=== PATIENT | female | born 1985 | race Caucasian/White ===

== ENCOUNTER 2019-02-09 23:15 | Inpatient (IN) | payer OTHER ==
[2019-02-09] MEDS ORDERED: ELECTROLYTE-148 SOLN 500 ML IV ONE (23:45)
[2019-02-09] MEDS ORDERED: CITRIC ACID/SODIUM CITRATE 30 ML UNIT-DOSE CUP PO ONE (23:45)
[2019-02-10] MEDS ORDERED: ELECTROLYTE-148 SOLN 1,000 ML IV SCH (00:15)
[2019-02-10 01:17] VITALS: BMI 29.2
[2019-02-10] MEDS ORDERED: OXYTOCIN 20 UNITS in 0.9% NS 20 UNIT/1,000 ML INFUS.BAG IV ONE ×2 (04:49→07:14)
[2019-02-10] MEDS ORDERED: morphine SULFATE/PF 0.5 MG/ML (2cc Syringe - QUVA) ONE (04:52)
[2019-02-10] MEDS ORDERED: ePHEDrine SULFATE 50 MG/1 ML AMPULE ONE (04:52)
--- NOTE | 2019-02-10 05:00 | HP ---
Past Medical History - Primary Care Physician PCP:: Jose Milian - Admission Chief Complaint: 39 weeks, previous c/s , SROM, labor , request of c/s History of Present Illness: 33 yo f g 2 p1001 39 weeks, c/o rom, clear , has contraction, fhr cat 1, regular contraction , one previous c/s, request of repeat c/s, risks of repeat c /s discussed. no fever, GBS negative History Source: Patient - Past Medical History ...: 2 ...Para: 1 ...Term: 1 ...LMP: 05/11/18 ... Weeks Gestation by Dates: 39.1 ...EDC by Dates: 02/15/19 ...EDC by Sono: 02/11/19 Heme/Onc: Yes: Anemia - Past Surgical History Hx Myomectomy: No Hx Transabdominal Cerclage: No - Smoking History Smoking history: Never smoked - Alcohol/Substance Use Hx Alcohol Use: No - Social History Usual Living Arrangement: Yes: With Spouse History of Recent Travel: No Home Medications - Allergies Allergies/Adverse Reactions: Allergies Allergy/AdvReac Type Severity Reaction Status Date / Time No Known Allergies Allergy Verified 02/10/19 01:08 - Home Medications Home Medications: Ambulatory Orders Iron 100 Plus Tablet 1 tab PO DAILY 02/10/19 One Tablet 1 tab PO DAILY 02/10/19 Review of Systems - Review of Systems Constitutional: reports: No Symptoms Eyes: reports: No Symptoms HENT: reports: No Symptoms Neck: reports: No Symptoms Cardiovascular: reports: No Symptoms Respiratory: reports: No Symptoms Gastrointestinal: reports: No Symptoms Genitourinary: reports: No Symptoms Breasts: reports: No Symptoms Reported Musculoskeletal: reports: No Symptoms Integumentary: reports: No Symptoms Neurological: reports: No Symptoms Endocrine: reports: No Symptoms Hematology/Lymphatic: reports: No Symptoms Psychiatric: reports: No Symptoms Physical Exam - Maternity Vital Signs: Vital Signs Temperature 98.8 F 02/10/19 02:00 Pulse Rate 89 02/10/19 01:10 Respiratory Rate 20 02/10/19 01:10 Blood Pressure 114/75 02/10/19 01:10 O2 Sat by Pulse Oximetry (%) Constitutional: Yes: Well Nourished, No Distress, Calm Eyes: Yes: WNL, Conjunctiva Clear, EOM Intact HENT: Yes: WNL, Atraumatic, Normocephalic Neck: Yes: WNL, Supple, Trachea Midline Cardiovascular: Yes: WNL, Regular Rate and Rhythm Breast(s): Yes: WNL - Abdominal Exam/OB Fundal Height: 38 Number of Fetuses: Single Presentation: Vertex Contractions: Yes Regularity: Regular Intensity: Mod/Strong Monitor Mode: External Heart Rate Location: RLQ Accelerations: Non-Uniform Decelerations: None - Vaginal Exam/OB Vaginal Bleediing: No Speculum Exam: No Dilatation (cm): 3 cm Effacement (%): 70 Amniotic Membrane Status: Ruptured Amniotic Fluid: Yes: Clear Presentation: Vertex/Position Station: -2 - Physical Exam Musculoskeletal: Yes: WNL Edema: LLE: Trace, RLE: Trace Deep Tendon Reflex Grade: Normal +2 ...Motor Strength: WNL Psychiatric: Yes: WNL Hemorrhage Risk Assessment - Risk Factors Medium Risk Factors: Yes: Prior , uterine surgery,or multiple laparotomies Risk Score: 1 Risk Level: Medium Risk Problem List - Problems (1) with 39 completed weeks gestation Code(s): Z3A.39 - 39 WEEKS GESTATION OF (2) membrane rupture Code(s): SNB0190 - (3) Previous section complicating Code(s): O34.219 - MATERNAL CARE FOR UNSP TYPE SCAR FROM PREVIOUS DEL (4) Labor established Code(s): LXT0865 - (5) Advanced maternal age (AMA) in Code(s): GPV5487 - Assessment/Plan repeat c/s, risks and ulternatives discussed , patient was booked previously for repeat c/s by Dr Mera
[2019-02-10] MEDS ORDERED: ceFAZolin SODIUM 1 GM VIAL ONE (05:10)
[2019-02-10] MEDS ORDERED: diphenhydrAMINE HCL 25 MG CAPSULE (FP) PO PRN (05:58)
[2019-02-10] MEDS ORDERED: METHYLERGONOVINE MALEATE 0.2 MG/1 ML AMP IM PRN (05:58)
[2019-02-10] MEDS ORDERED: BENZOCAINE 20% 57 GM BOTTLE TP PRN (05:58)
[2019-02-10] MEDS ORDERED: BENZOCAINE 28 GM HEMORRHOIDAL OINTMENT PR PRN (05:58)
[2019-02-10] MEDS ORDERED: WITCH HAZEL 50% (TUCKS) 40 PAD/JAR PAD TP PRN (05:58)
[2019-02-10] MEDS ORDERED: oxyCODONE HCL 5 MG TABLET PO PRN ×2 (05:58)
[2019-02-10] MEDS ORDERED: OXYTOCIN 20 UNITS in 0.9% NS 1,000 ML IV SCH (06:00)
[2019-02-10] MEDS ORDERED: DEXTROSE 5%-LACTATED RINGERS 1,000 ML IV SCH (06:00)
[2019-02-10] MEDS ORDERED: OXYTOCIN 20 UNITS in 0.9% NS 20 UNIT/1,000 ML INFUS.BAG IV SCH (06:00)
--- NOTE | 2019-02-10 06:03 | OP ---
Operative Note - Note: Operative Date: 02/10/19 Pre-Operative Diagnosis: previous c/s, ROM, labor Operation: repeat LST c/s Findings: live baby boy, ROT, 8/9 Surgeon: Jose Milian Soap Drier Tender: Kilo Bishop Anesthesiologist/POLY OPERATOR: Jadyn De La Cruz Anesthesia: Spinal Specimens Removed: placenta Estimated Blood Loss (mls): 500 Drains & Tubes with Location: fernandes Blood Volume Replaced (mls): 0 Operative Report Dictated: Yes
[2019-02-10] MEDS ORDERED: ONDANSETRON 4 MG/2 ML VIAL IVPUSH PRN (06:15)
[2019-02-10] MEDS: IBUPROFEN 800 MG/8 ML IJ IVPB PRN (08:06)
[2019-02-10] MEDS: ENOXAPARIN NA (PORCINE) 40 MG/0.4 ML DISP.SYRIN SQ SCH (09:52)
[2019-02-10] MEDS: CEFAZOLIN 1 GM/D5W 1 GM/50 ML BAG IVPB SCH ×2 (10:00→17:29)
[2019-02-11] MEDS: IBUPROFEN 800 MG/8 ML IJ IVPB PRN (00:48)
[2019-02-11] MEDS ORDERED: BISACODYL 10 MG SUPP.RECT PR PRN (05:58)
--- NOTE | 2019-02-11 07:29 | PN ---
Progress Note (short form) - Note Progress Note: pod1 s/p repeat c/s , doing well, no excess vaginal bleeding. passing gas, voids ok Last Vital Signs Temp Pulse Resp BP Pulse Ox 98.0 F 72 20 114/80 100 02/11/19 06:00 02/11/19 06:00 02/11/19 06:00 02/11/19 06:00 02/10/19 07:00 abdomen soft, no distension, no cva incision dry, clean no calf tenderness lochia mild plan cbc advance diet ambulate Problem List - Problems (1) with 39 completed weeks gestation Code(s): Z3A.39 - 39 WEEKS GESTATION OF (2) membrane rupture Code(s): [id number] - (3) Previous section complicating Code(s): O34.219 - MATERNAL CARE FOR UNSP TYPE SCAR FROM PREVIOUS DEL (4) Labor established Code(s): FMW8391 - (5) Advanced maternal age (AMA) in Code(s): XXJ0949 -
[2019-02-11 09:27] LABS: BASO % 0.4 % (0-2.0); EOS % 0.9 % (0-4.5); HEMATOCRIT 28.2 % (32.4-45.2); HEMOGLOBIN 9.4 GM/dL (10.7-15.3); LYMPH % 19.8 % (8-40); MCHC 33.4 g/dl (32.0-36.0); MEAN PLT VOLUME 8.3 fl (7.5-11.1); MONO % 6.1 % (3.8-10.2); NEUT % 72.8 % (42.8-82.8); PLATELET COUNT 184 K/MM3 (134-434); RBC 3.03 M/mm3 (3.60-5.2); RDW 13.8 % (11.6-15.6); WHITE BLOOD COUNT 12.8 K/mm3 (4.0-10.0)
[2019-02-11] MEDS ORDERED: FLU VACC QS2019-20(6MOS UP)/PF 60 MCG/0.5 ML SYRINGE IM ONE (10:00)
[2019-02-11] MEDS ORDERED: DIPHTH,PERTUSS(ACELL),TET 0.5 ML DISP.SYRIN IM ONE (10:00)
[2019-02-11] MEDS ORDERED: FLU VACCINE QUAD 60 MCG/0.5 ML (MDV 19-20) IM ONE (10:00)
[2019-02-11] MEDS: ENOXAPARIN NA (PORCINE) 40 MG/0.4 ML DISP.SYRIN SQ SCH (10:57)
--- NOTE | 2019-02-11 11:08 | PN ---
Progress Note (short form) - Note Progress Note: 33F s/p repeat C/S under Duramorph spinal. No new c/o. Vital Signs Period Temp Pulse Resp BP Sys/Kang Pulse Ox Last 24 Hr 97.8 F-98.9 F 72-80 18-20 90-114/49-80 CBC, BMP 02/11/19 08:05 Intake & Output 02/10/19 02/11/19 02/11/19 23:59 07:59 15:59 Intake Total 825 2370 Output Total 700 1500 1500 Balance 125 870 -1500 - No anesthetic complications
--- NOTE | 2019-02-11 18:58 | OP ---
DATE OF OPERATION: 02/10/2019 PREOPERATIVE DIAGNOSES: , 39 weeks, previous section, request for repeat section, in labor. POSTOPERATIVE DIAGNOSES: , 39 weeks, previous section, request for repeat section, in labor. PROCEDURE: Repeat low-segment transverse section. SURGEON: Indra Francois MD MATCHER LEATHER PARTS: DUANE Eden ANESTHESIA: Spinal. ESTIMATED BLOOD LOSS: 500 mL. ANESTHESIOLOGIST: Mp Allen MD FINDINGS: A live baby boy, 9 and 9. OPERATION: Patient was taken to the operating room under adequate spinal anesthesia. Abdomen and perineum were prepped and draped. Pfannenstiel abdominal skin incision was made. Abdominal wall was cut layer by layer until peritoneum was exposed and incised. Upon entering the abdominal cavity, lower uterine segment was identified and uterovesical fold of peritoneum established. Bladder was pushed down. Then with the lower blade of the Lazaro retractor in the pelvis, a low transverse uterine incision was made, incision extended laterally. Amniotic sac was entered, clear fluid. Head delivered. Nasal sinuses suctioned. A live baby boy was delivered without any difficulty. Placenta was delivered manually. Uterine cavity was cleaned of all remaining tissue. Uterine incision was closed in 2 layers, 1st layer with 0 Biosyn continuous suture, the 2nd layer with 0 Biosyn imbricating the 1st layer. Bladder flap was closed with 0 Biosyn continuous suture. Both tubes and ovaries were checked, were normal, no active bleeding was seen. All the lap pad, sponge count, and instrument count were correct. Then peritoneum was closed with 0 Biosyn continuous suture. Muscles were brought together with interrupted suture of 0 Biosyn. Fascia was closed with 0 Biosyn continuous suture, subcutaneous fat with interrupted suture of 0 Biosyn, and skin was closed with morgan. Patient tolerated procedure well, left the OR in good condition. INDRA FRANCOIS M.D. [id number]
[2019-02-11] MEDS: SIMETHICONE 80 MG TAB.CHEW (FP) PO PRN (21:23)
[2019-02-11] MEDS: ACETAMINOPHEN 325 MG TABLET (FP) PO PRN (21:23)
[2019-02-11] MEDS: IBUPROFEN 600 MG TABLET (FP) PO PRN (21:24)
--- NOTE | 2019-02-12 07:39 | PN ---
Progress Note (short form) - Note Progress Note: pod 2 s/p repeat c/s, doing well, ambulating , passing gas CBC, BMP 02/11/19 08:05 Last Vital Signs Temp Pulse Resp BP Pulse Ox 98.0 F 88 20 114/77 100 02/11/19 21:12 02/11/19 21:12 02/11/19 21:12 02/11/19 21:12 02/10/19 07:00 abdomen soft, no distension, no cva uteus firm, incision dry, clean , intact no calf tenderness or swelling lochia mild plan ambulate , cbc in am Problem List - Problems (1) with 39 completed weeks gestation Code(s): Z3A.39 - 39 WEEKS GESTATION OF (2) membrane rupture Code(s): THU0016 - (3) Previous section complicating Code(s): O34.219 - MATERNAL CARE FOR UNSP TYPE SCAR FROM PREVIOUS DEL (4) Labor established Code(s): GGM3208 - (5) Advanced maternal age (AMA) in Code(s): QMV8418 -
[2019-02-12] MEDS: ENOXAPARIN NA (PORCINE) 40 MG/0.4 ML DISP.SYRIN SQ SCH (10:07)
[2019-02-12] MEDS: IBUPROFEN 600 MG TABLET (FP) PO PRN ×2 (12:38→17:28)
[2019-02-12] MEDS: SIMETHICONE 80 MG TAB.CHEW (FP) PO PRN ×2 (12:38→17:27)
[2019-02-12] MEDS: ACETAMINOPHEN 325 MG TABLET (FP) PO PRN ×2 (12:39→17:27)
[2019-02-12] MEDS ORDERED: SENNOSIDES/DOCUSATE COMBO (SENNA PLUS) TABLET (UD) PO PRN (22:00)
[2019-02-12 22:01] VITALS: BP 105/61; PULSE 63; TEMP 98.4
[2019-02-13 07:54] LABS: BASO % 0.6 % (0-2.0); EOS % 3.2 % (0-4.5); HEMATOCRIT 29.1 % (32.4-45.2); HEMOGLOBIN 9.9 GM/dL (10.7-15.3); LYMPH % 29.1 % (8-40); MCH 31.7 pg (25.7-33.7); MCHC 33.9 g/dl (32.0-36.0); MEAN CELL VOLUME 93.5 fl (80-96); MEAN PLT VOLUME 8.1 fl (7.5-11.1); MONO % 7.7 % (3.8-10.2); NEUT % 59.4 % (42.8-82.8); PLATELET COUNT 236 K/MM3 (134-434); RBC 3.11 M/mm3 (3.60-5.2); WHITE BLOOD COUNT 8.7 K/mm3 (4.0-10.0)
[2019-02-13] MEDS: ACETAMINOPHEN 325 MG TABLET (FP) PO PRN (10:04)
[2019-02-13] MEDS: SIMETHICONE 80 MG TAB.CHEW (FP) PO PRN (10:04)
[2019-02-13] MEDS: IBUPROFEN 600 MG TABLET (FP) PO PRN (10:05)
[2019-02-13] MEDS: ENOXAPARIN NA (PORCINE) 40 MG/0.4 ML DISP.SYRIN SQ SCH (10:05)
--- NOTE | 2019-02-13 10:42 | DS ---
Physical Exam-MOTORS AND GENERATORS INSPECTOR Vital Signs: Vital Signs Temperature 98.4 F 02/12/19 21:58 Pulse Rate 63 02/12/19 21:58 Respiratory Rate 20 02/12/19 21:58 Blood Pressure 105/61 02/12/19 21:58 O2 Sat by Pulse Oximetry (%) 100 02/10/19 07:00 Constitutional: Yes: Well Nourished, No Distress, Calm Eyes: Yes: WNL, Conjunctiva Clear, EOM Intact HENT: Yes: WNL, Atraumatic, Normocephalic Neck: Yes: WNL, Supple, Trachea Midline Cardiovascular: Yes: WNL, Regular Rate and Rhythm Respiratory: Yes: WNL, Regular, CTA Bilaterally Gastrointestinal: Yes: WNL ...Rectal Exam: Yes: WNL Renal/: Yes: WNL ....Post : Yes: Uterus firm, Uterus non-tender, Slight lochia rubra Breast(s): Yes: WNL Musculoskeletal: Yes: WNL Extremities: Yes: WNL Edema: LLE: Trace, RLE: Trace Integumentary: Yes: WNL Wound/Incision: Yes: Clean/Dry, Well Approximated, [place] Intact Neurological: Yes: WNL, Alert, Oriented ...Motor Strength: WNL Psychiatric: Yes: WNL, Alert, Oriented Labs: CBC, BMP 02/13/19 07:05 Delivery - Delivery Section: Repeat, Low Flap Transverse Type of Anesthesia: Spinal Episiotomy/Laceration: None EBL (cc): 500 Delivery, Single - Stages of Labor Date 1st Stage Initiatied: 02/09/19 Time 1st Stage Initiated: 23:00 Date of Delivery: 02/10/19 Time of Delivery: 05:23 Time Placenta Delivered: 05:24 Placenta: Yes: Expressed - 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 of 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/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 Operations Present: Yes Name: Kennedi Miller Infant Gender: Male Weight: 10 lb 14 oz Position: Right, OT - 1 Minute Total Score: 8 5 Minutes Total Score: 9 - [place] Feeding Plan Initial Plan: Exclusive throughout hospitalization Discharge Summary Problems reviewed: Yes Reason For Visit: REPEAT C SECTION Current Active Problems Advanced maternal age (AMA) in (Acute) membrane rupture (Acute) Labor established (Acute) with 39 completed weeks gestation (Acute) Previous section complicating (Acute) Procedures: Principal: repeat LST c/s Other Procedures: spinal anesthesia Hospital Course: no complication Health Concerns: anemia Plan of Treatment: iron, vitamin Goals: hb 12 Condition: Good - Instructions Diet, Activity, Other Instructions: Regular Diet Follow up in one week with to have your incision checked. Referrals: Eugenia Mera MD [Staff Physician] - Jose Milian MD [Staff Physician] - Disposition: HOME - Home Medications Comprehensive Discharge Medication List: Ambulatory Orders Ibuprofen [Motrin -] 600 mg PO QID #28 tablet 02/10/19 Iron 100 Plus Tablet 1 tab PO DAILY 02/10/19 One Tablet 1 tab PO DAILY 02/10/19 Oxycodone HCl/Acetaminophen [Percocet 5-325 mg Tablet -] 1 - 2 tab PO Q6H PRN # 20 tab MDD 20 02/11/19
--- NOTE | 2019-02-17 11:03 | PATH ---
Surgical Pathology Report Patient Name: WILLA ESTES [facility] [place]. Rec. #: [id number] /Age/Gender: 1985 (Age: 33) / F Account: [id number] Location: [facility] OBS/TOOL BUILDER Taken: 02/10/2019 Received: 02/10/2019 Reported: 02/17/2019 Physicians: Jose Milian M.D. Specimen(s) Received PLACENTA Clinical History , 40 weeks Final Diagnosis PLACENTA: THIRD TRIMESTER PLACENTA. TRIVASCULAR CORD. MEMBRANES WITH NO DIAGNOSTIC ABNORMALITIES. Electronically Signed Jason Fairbanks M.D. Gross Description The specimen is received fresh labeled placenta and is a 764 gram, 21.5 x 19.5 x 2.6 cm. placenta with attached membranes and umbilical cord. The attached membranes are ballard, translucent with focal opacities and insert marginally. The umbilical cord measures 60 cm. in length and averages 1.2 cm. in diameter. The cord inserts eccentrically, 5.5 cm. to the nearest margin. No true knots or strictures are identified. Cut surface of the umbilical cord reveals 3 vessels. The surface is arora-blue with minimal fibrin deposition and appropriate caliber vessels. The maternal surface is red-brown with focal defects. Sectioning reveals red-brown, spongy parenchyma. No lesions are identified. Multimedia Authoring Specialist sections are submitted in three cassettes as follows: 1- membrane rolls and umbilical cord; 2-3- full thickness sections of placenta. 02/14/2019 [facility]
== END 2019-02-13 13:45 | disposition home or self-care (01) | DRG 540 ==
LOC: JLDR 23:15 → J3W 02-10 07:35
PROVIDERS: ADMIT Obstetrics & Gynecology; ATTEND Obstetrics & Gynecology
PROC: 10D00Z1 Extraction of Products of Conception, Low, Open Approach (ICD-10-PCS; principal; 2019-02-10)
DX: O34.219 Maternal care for unspecified type scar from previous cesarean delivery (principal); Z3A.39 39 weeks gestation of pregnancy; Z37.0 Single live birth
CPT/HCPCS: 36415; 85025; 90686; G0008

== ENCOUNTER 2022-04-28 15:11 | Emergency (ER) | payer OTHER ==
[2022-04-28 15:18] VITALS: BP 104/50; PULSE 90; RESP 17; TEMP 98.1; BMI 21.4
[2022-04-28 17:49] LABS: BASO % 0.5 % (0-2.0); EOS % 3.5 % (0-4.5); HEMATOCRIT 34.5 % (32.4-45.2); HEMOGLOBIN 11.3 GM/dL (10.7-15.3); LYMPH % 33.6 % (8-40); MCH 27.6 pg (25.7-33.7); MCHC 32.6 g/dl (32.0-36.0); MEAN CELL VOLUME 84.6 fl (80-96); MEAN PLT VOLUME 7.7 fl (7.5-11.1); MONO % 6.6 % (3.8-10.2); NEUT % 55.8 % (42.8-82.8); PLATELET COUNT 287 10^3/uL (134-434); RBC 4.08 M/mm3 (3.60-5.2); RDW 13.9 % (11.6-15.6); WHITE BLOOD COUNT 8.3 K/mm3 (4.0-10.0)
[2022-04-28 17:56] LABS: INR 0.94 (0.83-1.09); PROTHROMBIN TIME (PATIENT) 10.9 SEC (9.7-13.0)
[2022-04-28 17:58] LABS: ACTIVATED PTT 24.8 SECONDS (25.2-36.5)
[2022-04-28 18:53] LABS: URINE APPEARANCE CLEAR; URINE BILIRUBIN NEGATIVE (NEGATIVE); URINE COLOR YELLOW; URINE GLUCOSE (UA) NEGATIVE (NEGATIVE); URINE KETONE NEGATIVE (NEGATIVE); URINE LEUK ESTERASE NEGATIVE (NEGATIVE); URINE NITRITE NEGATIVE (NEGATIVE); URINE PROTEIN NEGATIVE (NEGATIVE); URINE UROBILINOGEN 0.2 mg/dL (0.2-1.0)
[2022-04-28] MEDS ORDERED: ACETAMINOPHEN 500 MG TABLET (FP) PO ONE (19:15)
[2022-04-28] MEDS ORDERED: ACETAMINOPHEN 500 MG TABLET (FP) ONE (19:20)
== END 2022-04-28 20:06 | disposition home or self-care (01) ==
LOC: JER 15:11
DX: O26.891 Other specified pregnancy related conditions, first trimester (principal); R10.2 Pelvic and perineal pain; Z3A.01 Less than 8 weeks gestation of pregnancy
CPT/HCPCS: 36415; 76817-TC; 81003; 84702; 85025; 85610; 85730; 86850; 86900; 86901; 99284-25